=== PATIENT | male | born 1965 | race Caucasian/White ===

== ENCOUNTER 2018-02-06 10:41 | Inpatient (IN) ==
[2018-01-31 12:22] LABS: Appearance,Urine CLEAR; Bilirubin,Urine NEG (NEG); Color,Urine YELLOW; Glucose,Urine (UA) NEGATIVE (NEG); Leukocyte Esterase,Urine NEG /uL (NEG); Protein,Urine NEG (NEG); Specific Gravity,Urine 1.012 (1.000-1.035); Urine Blood NEG mg/dL (<0.03); Urobilinogen,Urine NEG (NEG)
[2018-01-31 13:29] LABS: Blood Urea Nitrogen 11 mg/dl (6-20)
[2018-01-31 13:35] LABS: Basophils # (Auto) 0 K/mcL (0.0-0.3); Basophils % (Auto) 0.6 % (0.0-2.0); Eosinophils # (Auto) 0.1 K/mcL (0.0-0.7); Granulocytes % (Auto) 53.1 % (38.0-78.0); Lymphocytes # (Auto) 2.7 K/mcL (1.5-4.8); Lymphocytes % (Auto) 36.7 % (15.5-49.0); Mean Cell Volume 99.7 fL (80.0-100.0); Mean Corpuscular HGB Conc 32.9 g/dL (31.0-36.0); Mean Corpuscular Hemoglobin 32.8 pg (26.0-34.0); Monocytes # (Auto) 0.6 K/mcL (0.1-0.9); Monocytes % (Auto) 7.6 % (1.0-12.0); Platelet Count 298 K/mcL (140-440); RBC 4.28 M/mcL (4.50-5.90); Red Cell Distribution Width 15.2 % (11.5-14.5)
[~2018-02-06 10:41] MED LIST: ACETAMINOPHEN 500 MG TABLET PO SCH; CELECOXIB 200 MG CAPSULE PO SCH; GABAPENTIN 400 MG CAPSULE PO SCH; ceFAZolin 1 GM VIAL IV SCH; oxyCODONE 10 MG TAB.ER.12H PO SCH
[2018-02-06] MEDS ORDERED: ROPIVACAINE HCL/PF 30 ML VIAL IJ ONE (13:15)
[2018-02-06] MEDS ORDERED: LIDOCAINE HCL/PF 100 MG/5 ML SYRINGE IV ONE (13:15)
[2018-02-06] MEDS ORDERED: GLYCOPYRROLATE 0.2 MG/ML VIAL IV ONE (13:15)
[2018-02-06] MEDS ORDERED: fentaNYL 250 MCG/5 ML VIAL IV ONE (13:15)
[2018-02-06] MEDS ORDERED: TRANEXAMIC ACID 1,000 MG/10 ML VIAL IV ONE (13:15)
[2018-02-06] MEDS ORDERED: KETAMINE 100 MG/ML ML IV ONE (13:15)
[2018-02-06] MEDS ORDERED: ONDANSETRON 4 MG/2 ML VIAL IV ONE (13:15)
[2018-02-06] MEDS ORDERED: MIDAZOLAM 2 MG/2 ML VIAL IV ONE (13:15)
[2018-02-06] MEDS ORDERED: ROCURONIUM 10 MG/ML ML IV ONE (13:15)
[2018-02-06] MEDS ORDERED: NEOSTIGMINE 1 MG/ML VIAL IV ONE (13:15)
[2018-02-06] MEDS ORDERED: PROPOFOL 200 MG/20 ML VIAL IV ONE (13:15)
[2018-02-06] MEDS ORDERED: GENTAMICIN SULFATE 800 MG/20 ML VIAL IR ONE (14:21)
[2018-02-06] MEDS ORDERED: MAGNESIUM HYDROXIDE 30 ML ORAL.SUSP PO PRN (14:45)
[2018-02-06] MEDS ORDERED: KETOROLAC 15 MG/ML VIAL IV PRN (14:45)
[2018-02-06] MEDS ORDERED: BENZOCAINE/MENTHOL 1 LOZENGE PO PRN (14:45)
[2018-02-06] MEDS ORDERED: ONDANSETRON 4 MG/2 ML VIAL IV PRN ×2 (14:45→15:17)
[2018-02-06] MEDS ORDERED: BISACODYL 10 MG SUPP.RECT PR PRN (14:45)
[2018-02-06] MEDS ORDERED: ACETAMINOPHEN 325 MG TABLET PO PRN (14:45)
[2018-02-06] MEDS ORDERED: TRANEXAMIC ACID 1,000 MG/10 ML VIAL IV SCH (14:45)
[2018-02-06] MEDS ORDERED: POLYETHYLENE GLYCOL 3350 17 GM PACKET PO PRN (14:45)
[2018-02-06] MEDS ORDERED: FLEETS ADULT ENEMA PR PRN (14:45)
[2018-02-06] MEDS ORDERED: 0.45 % SODIUM CHLORIDE 1,000 ML IV SCH (14:45)
--- NOTE | 2018-02-06 14:45 | Brief Operative Note ---
Date of procedure: 02/06/18 Pre-op diagnosis: right shoulder rca and tear of bicep Post-op diagnosis: same Procedure: right reverse tsa with bicep tenodesis Grafts/Implants: Yes Anesthesia: GETA Complications: none Surgeon: Marcio Rios [facility] Counselor: Bobo Greer Estimated blood loss (cc): 100 Specimens Removed/Pathology: none sent Disposition: PACU
[2018-02-06] MEDS ORDERED: HYDROCODONE/APAP 7.5/325MG TABLET PO PRN (14:52)
[2018-02-06] MEDS ORDERED: ALBUTEROL SULFATE 1 PUFF INHALER INH PRN (14:52)
[2018-02-06] MEDS ORDERED: METHOCARBAMOL 750 MG TABLET PO PRN (14:52)
[2018-02-06] MEDS ORDERED: MEPERIDINE 50 MG/ML INJECTION ONE (15:13)
[2018-02-06] MEDS ORDERED: IPRATROPIUM/ALBUTEROL 3 ML AMPUL.NEB NEB PRN (15:17)
[2018-02-06] MEDS ORDERED: fentaNYL 100 MCG/2 ML VIAL IV ONE (15:17)
[2018-02-06] MEDS ORDERED: fentaNYL 100 MCG/2 ML VIAL IV PRN (15:17)
[2018-02-06] MEDS ORDERED: MEPERIDINE 25 MG/ML SYRINGE IV PRN (15:17)
[2018-02-06] MEDS ORDERED: METHOCARBAMOL 1,000 MG/10 ML VIAL IV ONE (15:20)
[2018-02-06] MEDS ORDERED: METHOCARBAMOL 1,000 MG/10 ML VIAL ONE (15:25)
[2018-02-06] MEDS ORDERED: LACTATED RINGERS 1,000 ML IV SCH (15:30)
--- NOTE | 2018-02-06 15:37 | XRay Report ---
CLINICAL INFORMATION: Post-OP Total Shoulder COMPARISON: None. FINDINGS: Right total shoulder prostheses is anatomically aligned. No osseous abnormality. Soft tissue swelling seen as expected IMPRESSION: Negative Interpreted and Authenticated by: Leon Hurd 02/06/18
--- NOTE | 2018-02-06 15:59 | Operative Note ---
DATE OF OPERATION: 02/06/2018 PREOPERATIVE DIAGNOSIS: Right shoulder rotator cuff arthropathy with biceps tendinopathy. POSTOPERATIVE DIAGNOSIS: Right shoulder rotator cuff arthropathy with biceps tendinopathy. PROCEDURE: Right reverse total shoulder and biceps tenodesis. SURGEON: Marcio Rios M.D. SURVEILLANCE INSPECTOR: Bobo Greer PA-C. ANESTHESIA: General LMA anesthesia. COMPLICATIONS: None. DESCRIPTION OF PROCEDURE: The patient was brought to the operating room and put to sleep with general LMA anesthesia. Once asleep, the patient had the right shoulder sterilely prepped and draped in the usual sterile fashion. We confirmed this as the operative site with a timeout. Once asleep, we then made a deltopectoral approach, covering the skin with Ioban. Preop antibiotics and tranexamic acid had been given. A deltopectoral approach was performed and exposed the joint. We released the subscap anteriorly and dislocated the humerus anteriorly. We released the remnants of the biceps tendon and extensive synovitis and a very large rotator cuff tear was present. We then made our neck cut at the anatomical neck region with 20 degrees retroversion. Once this was done, we then subluxed the head posteriorly, performed a 360 degree capsular release around the glenoid, and then placed a central pin. We reamed up to the size of 40, placed the Metaglene centrally with a 36 mm central screw, a 24 superior screw, a 32 inferior screw, and a 40 mm anterior screw. These had excellent purchase. We irrigated thoroughly and then placed a 40 mm glenosphere which was 2 mm of offset, 2 mm of the eccentricity. This was tapped into place. I then prepared the humerus. This was reamed up to the size 11 stem. This was trialed with a standard thickness poly. It fit very nicely with excellent range of motion. We irrigated thoroughly, put a little cement on the end of the stem. This was inserted for security and tapped into place. A standard thickness poly was inserted and reduced the shoulder without difficulty. Tension was perfect. We irrigated thoroughly and then controlled any bleeding. The cephalic vein was kept intact. I then performed a biceps tenodesis using a FiberWire, and this was sutured to the bone and to the pec major muscle, roughening the bone to give a good bony surface to grow in. We irrigated thoroughly and then closed the deltopectoral approach with 2-0 Vicryl and adhesive closure. The patient tolerated this well without complication. Blood loss was about 100 mL. A DonJoy sling was fitted and given to the patient at the end of the case. RBH:yani Job ID: [id number] Doc ID: [id number] Marcio Rios MD
[2018-02-06] MEDS: OXYBUTYNIN CHLORIDE 5 MG TAB.XL.24H PO SCH ×2 (17:50→21:24)
[2018-02-06] MEDS: GABAPENTIN 400 MG CAPSULE PO SCH ×2 (17:51→21:11)
[2018-02-06] MEDS: PANTOPRAZOLE 40 MG TABLET PO SCH (17:51)
[2018-02-06] MEDS ORDERED: hydrOXYzine 25 MG TABLET PO SCH (21:00)
[2018-02-06] MEDS ORDERED: TEMAZEPAM 15 MG CAPSULE PO PRN (21:00)
[2018-02-06] MEDS ORDERED: DICLOFENAC 75 MG PO SCH (21:00)
[2018-02-06] MEDS ORDERED: SENNOSIDES 1 TABLET PO SCH (21:00)
[2018-02-06] MEDS ORDERED: PRAZOSIN 1 MG CAPSULE PO SCH (21:00)
[2018-02-06] MEDS ORDERED: OLANZapine 2.5 MG TABLET PO SCH (21:00)
[2018-02-06] MEDS ORDERED: ATORVASTATIN 20 MG TABLET PO SCH (21:00)
[2018-02-06] MEDS: ACYCLOVIR 400 MG TABLET PO SCH (21:11)
[2018-02-06] MEDS: FAMOTIDINE 20 MG TABLET PO SCH (21:11)
[2018-02-06] MEDS: buPROPion 100 MG TABLET PO SCH (21:12)
[2018-02-06] MEDS: ceFAZolin 1 GM VIAL IV SCH (21:12)
[2018-02-06] MEDS: DOCUSATE SODIUM 100 MG CAPSULE PO SCH (21:23)
[2018-02-06] MEDS: Budesonide/Formoterol Fumarate [Symbicort 160-4.5 MCG] Inhaler INH SCH (21:24)
[2018-02-06] MEDS: FLUTICASONE PROPIONATE SPRAY.NAS NS SCH (21:24)
[2018-02-06] MEDS: 0.9 % SODIUM CHLORIDE 10 ML SYRINGE IV SCH (21:25)
[2018-02-07] MEDS: HYDROcodone/APAP 10/325MG TABLET PO PRN ×3 (01:36→11:16)
[2018-02-07] MEDS: HYDROmorphone 2 MG/ML VIAL IV PRN ×2 (03:37→13:09)
[2018-02-07] MEDS: ceFAZolin 1 GM VIAL IV SCH (05:47)
--- NOTE | 2018-02-07 07:45 | Orthopedic Progress Note ---
Subjective Patient information: Note initiated : 02/07/18 at 7:44 am Service Date, if different from initiated Date: [] Patient: Lemuel Mccarty 52 y/o M admitted on 02/06/18 for Right Reverse Total Shoulder Arthroplasty with. Chief Complaint: [Pt is stable this morning on post operative day 1 without any significant concerns or complaints. Patients vital signs have remained stable. Patients dressing is dry and is grossly intact from a neurovascular and motor standpoint. Patients 10 point ROS is otherwise negative. ] Objective Vital signs: Vital Signs Temp Pulse Resp BP Pulse Ox 02/07/18 06:51 97.8 F 77 14 147/74 91 02/07/18 03:56 97.9 F 86 16 127/79 93 02/06/18 23:50 98.0 F 81 16 116/73 94 02/06/18 20:00 98.0 F 77 16 138/88 96 02/06/18 17:21 157/101 96 02/06/18 16:51 151/61 94 02/06/18 16:36 144/90 93 02/06/18 16:21 134/85 92 02/06/18 16:06 152/95 91 02/06/18 16:00 88 16 92 02/06/18 15:40 90 14 162/88 93 02/06/18 15:25 89 15 148/77 94 02/06/18 15:10 93 H 15 140/72 94 02/06/18 15:05 63 15 147/51 94 02/06/18 15:00 77 14 163/94 95 02/06/18 14:56 97.1 F 65 15 132/74 95 02/06/18 11:16 97.9 F 18 125/85 94 02/06/18 11:15 65 Intake and Output 02/06/18 02/07/18 02/07/18 21:59 05:59 13:59 Intake Total 2350 / 2350 250 / 250 Output Total 1000 / 1000 1050 / 1050 Balance 1350 / 1350 -800 / -800 Intake: Oral 250 / 250 IV - Manual Only 2350 / 2350 Output: Void Amount 900 / 900 1050 / 1050 Estimated Blood Loss 100 / 100 Other: Urine Appearance Clear Clear Urine Color Bright Yellow Straw Urine Odor Normal Weight 236 lb Intake & Output: Intake & Output 02/06/18 02/07/18 02/07/18 21:59 05:59 13:59 Intake Total 2350 / 2350 250 / 250 Output Total 1000 / 1000 1050 / 1050 Balance 1350 / 1350 -800 / -800 Weight 236 lb Intake: Oral 250 / 250 IV - Manual Only 2350 / 2350 Output: Void Amount 900 / 900 1050 / 1050 Estimated Blood Loss 100 / 100 Other: Urine Appearance Clear Clear Urine Color Bright Yellow Straw Urine Odor Normal Incision: Yes healing Dressing: Yes clean Weight bearing status: full Neurological exam IM: Yes motor sensory intact, Yes neurovascular intact Extremities exam IM: Yes neurovascular intact - Labs CBC & BMP: 01/31/18 10:06 01/31/18 10:06 Labs: Orthopedic Labs 01/31/18 10:05 PT 13.2 INR 1.0 APTT 28 01/31/18 10:06 Hgb 14.0 Hct 42.6 Assessment and Plan (1) Hx of total shoulder replacement The patient has been educated regarding dressing care, Physical Therapy recommendations, home exercises, restrictions, and follow up appointments. The patient has had all necessary DME prescribed. The patient has remained relatively stable during their hospital course. Leave Dermabond patch intact until followup Status: Acute
--- NOTE | 2018-02-07 07:47 | Discharge Summary ---
Ortho Discharge - TSA - Patient Instructions Diet: Regular Diet Activity: activity as tolerated, weight bearing as tolerated Total Shoulder Protocol: Leave immobilizer in place except for bathing and ROM. Abduction pillow. Continue to wear sling until seen by physician. Codman Pendulum : These exercises use momentum produced by your body to move your shoulder joint. Bend your knees and shift your weight to your front leg, then back, allowing your arm to swing in the same directions. Using the same technique, alternately shift your weight between your right and left legs, allowing your arm to swing from side to side. These exercises are also performed in counterclockwise and clockwise circular motions. Typically these exercises are performed several times per day, for a set number repetitions or minutes, such as 20 times in a row or 5 minutes at a time. Dressing Care: May shower in 2 days - Problem Maintenance (1) Hx of total shoulder replacement Status: Acute - Follow Up Plan Follow Up Appointments: Bobo Greer PA-C [Physician Logistics Specialist] - 02/21/18 1:10 pm Disposition: Home, Self-Care Prognosis: Good Rehab Potential: Good I certify that the patient requires SNF services: No Overall status at discharge: patient is progressing back to baseline - Orders For Discharge Prescriptions: Docusate Sodium [Colace] 100 mg PO BID #60 capsule HYDROcodone/APAP 10/325MG [[place] 10-325Mg] 1 - 2 tab PO Q4HP PRN #75 tablet PRN Reason: Pain Level 3-6
[2018-02-07] MEDS ORDERED: POTASSIUM CHLORIDE 10 MEQ TABLET PO SCH (08:00)
[2018-02-07] MEDS: PANTOPRAZOLE 40 MG TABLET PO SCH (08:04)
[2018-02-07] MEDS: 0.9 % SODIUM CHLORIDE 10 ML SYRINGE IV SCH (08:05)
[2018-02-07] MEDS ORDERED: LIDOCAINE PATCH TOPICAL SCH (09:00)
[2018-02-07] MEDS ORDERED: TIOTROPIUM BROMIDE 18 MCG INHALANT INH SCH (09:00)
[2018-02-07] MEDS ORDERED: MULTIVIT,THER IRON,CA,FA & MIN 1 TABLET PO SCH (09:00)
[2018-02-07] MEDS ORDERED: FISH OIL 1,000 MG CAPSULE PO SCH (09:00)
[2018-02-07] MEDS ORDERED: VITAMIN D3 5,000 UNIT CAPSULE PO SCH (09:00)
[2018-02-07] MEDS ORDERED: LISINOPRIL 20 MG TABLET PO SCH (09:00)
[2018-02-07] MEDS ORDERED: PRAZOSIN 1 MG CAPSULE PO SCH (09:00)
[2018-02-07] MEDS ORDERED: FLUoxetine HCL 20 MG CAPSULE PO SCH (09:00)
[2018-02-07] MEDS ORDERED: LORATADINE 10 MG TABLET PO SCH (09:00)
[2018-02-07] MEDS: DOCUSATE SODIUM 100 MG CAPSULE PO SCH (09:08)
[2018-02-07] MEDS: FLUTICASONE PROPIONATE SPRAY.NAS NS SCH (09:09)
[2018-02-07] MEDS: GABAPENTIN 400 MG CAPSULE PO SCH (09:10)
[2018-02-07] MEDS: ACYCLOVIR 400 MG TABLET PO SCH (09:11)
[2018-02-07] MEDS: buPROPion 100 MG TABLET PO SCH (09:11)
[2018-02-07] MEDS: OXYBUTYNIN CHLORIDE 5 MG TAB.XL.24H PO SCH (09:11)
[2018-02-07] MEDS: FAMOTIDINE 20 MG TABLET PO SCH (09:11)
[2018-02-07] MEDS: Budesonide/Formoterol Fumarate [Symbicort 160-4.5 MCG] Inhaler INH SCH (09:16)
== END 2018-02-07 13:30 | disposition home or self-care (01) | DRG 483 ==
LOC: MEDSUR 10:41
PROVIDERS: ADMIT Orthopaedic Surgery; ATTEND Orthopaedic Surgery
CPT/HCPCS: 97161

== ENCOUNTER 2020-12-13 10:17 | Observation (INO) ==
[2020-12-13] MEDS ORDERED: diphenhydrAMINE 50 MG/ML VIAL IV ONE (10:25)
[2020-12-13] MEDS ORDERED: methylPREDNISolone SOD SUCC 125 MG/2 ML VIAL IV ONE (10:25)
[2020-12-13] MEDS ORDERED: 0.9 % SODIUM CHLORIDE 250 ML IV SCH (10:30)
--- NOTE | 2020-12-13 10:31 | Emergency Department Note ---
HPI General Chief complaint: Allergic Reaction Stated complaint: tongue swelling Time Seen by Provider: 12/13/20 10:24 Source: patient Mode of arrival: ambulatory Limitations: no limitations History of Present Illness HPI Narrative: Narrative: 55 yo M p/w tongue swelling. Onset of Sx just DATA MANAGER. Constant since onset, not rapidly worsening. No previous episodes. Denies CP/SOB. No new foods, no insect or other bites. Ate breakfast (oats) this AM, which is usual for him. Is on lisinopril, and has been on this for several years. No other rashes noted. Related Data Home Medications Medication Instructions Recorded Confirmed acyclovir 400 mg PO BID 01/31/18 10/03/20 albuterol sulfate 2 puff INH Q4HP PRN 01/31/18 10/03/20 atorvastatin 20 mg PO HS 01/31/18 10/03/20 budesonide-formoterol 2 puff INH BID 01/31/18 10/03/20 cholecalciferol (vitamin D3) 5,000 unit PO DAILY 01/31/18 10/03/20 diclofenac sodium 75 mg PO BID 01/31/18 10/03/20 fluoxetine 80 mg PO DAILY 01/31/18 10/03/20 fluticasone propionate 1 spray NS BID 01/31/18 10/03/20 gabapentin 400 mg PO TID 01/31/18 10/03/20 hydroxyzine pamoate 25 mg PO HS 01/31/18 10/03/20 lidocaine 1 patch TOPICAL DAILY 01/31/18 10/03/20 lisinopril 20 mg PO DAILY 01/31/18 10/03/20 loratadine 10 mg PO DAILY 01/31/18 10/03/20 methocarbamol 750 mg PO QIDP PRN 01/31/18 10/03/20 qhtkxtue-axhd-QH-calcium-mins 1 tab PO DAILY 01/31/18 10/03/20 olanzapine 7.5 mg PO HS 01/31/18 10/03/20 omega 7-lej-rgn-fish oil 2,000 mg PO DAILY 01/31/18 10/03/20 oxybutynin chloride 5 mg PO TID 01/31/18 10/03/20 pantoprazole 80 mg PO BIDAC 01/31/18 10/03/20 potassium chloride 10 meq PO QAMCC 01/31/18 10/03/20 prazosin 2 mg PO DAILY 01/31/18 10/03/20 prazosin 8 mg PO HS 01/31/18 10/03/20 tiotropium bromide 2 puff INH DAILY 01/31/18 10/03/20 bupropion HCl 100 mg tablet 75 mg PO BID tab 07/19/19 10/03/20 carboxymethylcellulose sodium 0.5 1 drp OPHTHALMIC QID 07/19/19 10/03/20 % eye drops in a dropperette famotidine 20 mg tablet 20 mg PO BID 07/19/19 10/03/20 sildenafil 100 mg tablet 100 mg PO QDAY PRN 07/19/19 10/03/20 mometasone 100 mcg/actuation HFA See Rx Instructions INHALATION BID 10/16/19 10/03/20 aerosol inhaler Previous Rx's Medication Instructions Recorded loperamide 2 mg tablet 2 mg PO Q4H PRN #30 tab 09/09/20 Allergies Allergy/AdvReac Type Severity Reaction Status Date / Time Varenicline [From Chantix] AdvReac Intermediate Depression Verified 12/13/20 10:24 Review of Systems ROS ROS Narrative: Narrative: All systems ED: reviewed and negative except as stated. Constitutional: Denies fever and chills Eyes: Denies vision change ENT ED: Denies ear pain and throat pain Cardiovascular: Denies chest pain and palpitations Respiratory: Denies shortness of breath and cough Gastrointestinal: Denies abdominal pain, nausea and vomiting Genitourinary: Denies dysuria and frequency Musculoskeletal: Denies back pain and joint swelling Integumentary: Denies rash and lesions Neurological: Denies headache and weakness Psychiatric: Denies anxiety and depression Endocrine: Denies fatigue and heat or cold intolerance Hematological/Lymphatic: Denies easy bleeding and easy bruising PFSH Narrative Patient History Narrative: Narrative: Medical/Surgical/Family History All Active Problems (Updated 12/13/20 @ 17:13 by Joseph Porter MD) Bruising (Acute) 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-I) (Acute) Shoulder pain, right (Acute) Diarrhea (Acute) Shortness of breath (Acute) Fever (Acute) Viral syndrome (Acute) Hx of total shoulder replacement (Acute) COPD exacerbation (Acute) Lip swelling (Acute) Hip pain, left (Acute) Medical History Fever Shortness of breath Shoulder pain, right Viral syndrome Social History Smoking Status: Former smoker Alcohol Intake Frequency: a few times a week Substance Use: does not use Exam Narrative Narrative: Narrative: General Limitations: no limitations Eye Eye: Present normal appearance and scleral icterus ENT ENT: Present mucous membranes moist and other (moderate tongue edema, B/L. Mallampati IV. No lacerations.) Neck Neck: Present trachea midline Chest Chest: Present symmetric chest wall rise Respiratory Respiratory: Present normal lung sounds bilaterally; Absent respiratory distress, wheezes, stridor, accessory muscle use and prolonged expiratory phase Cardiovascular Cardiovascular: Present regular rate and normal rhythm; Absent systolic murmur and diastolic murmur Adbominal Abdominal: Present soft; Absent distention and tenderness Extremities Extremities: Absent pedal edema Neurological Neurological: Present alert and oriented X3 Psychiatric Psychiatric: Present normal affect and normal mood Skin Skin: Present warm (WNL) and dry Course Vital Signs Vital signs: Vital Signs Temperature 98.7 F 12/13/20 10:19 Pulse Rate 77 12/13/20 10:19 Respiratory Rate 18 12/13/20 10:19 Blood Pressure 136/96 12/13/20 10:19 Pulse Oximetry (%) 90 12/13/20 10:19 Temperature 98.7 F 12/13/20 10:19 Pulse Rate 74 12/13/20 15:46 Respiratory Rate 12 12/13/20 15:46 Blood Pressure 138/95 12/13/20 15:46 Pulse Oximetry (%) 94 12/13/20 15:46 [facility] MDM Narrative Medical decision making narrative: Narrative: 55 yo M w/ h/o COPD, HTN, p/w tongue edema DDx - LEXI-i induced angioedema, allergic angioedema, anaphylaxis, tongue injury Pt presented w/ tongue edema, but was still maintaining his airway and se cretions. Immediate intubation was not required. I felt that an allergic angioedema was less likely, but did give empiric solumedrol and benadryl while waiting for FFP, as they were unlikely to cause harm. I did not feel that anaphylaxis was likely and epi was not indicated. There was no evidence of traumatic injury. Overall evaluation was c/w LEXI-i induced angioedema. After discussing R/B/A I started Tx w/ FFP 2 units, to which he responded well. I monitored him for hours to ensure that there was no decompensation, and he continued to improve. I then contacted the hospitalist who accepted him for admission. Lab Data Lab results reviewed: Yes I reviewed the patient's lab results. Result diagrams: 12/13/20 10:28 12/13/20 10:28 Labs: Lab Results 12/13/20 12/13/20 Range/Units 10:28 10:28 WBC 8.2 (4.5-11.0) K/mcL RBC 4.26 L (4.63-6.08) M/mcL Hgb 14.3 (13.7-17.5) g/dL Hct 42.8 (40.1-51.0) % MCV 100.5 H (80.0-100.0) fL MCH 33.6 (26.0-34.0) pg MCHC 33.4 (31.0-36.0) g/dL RDW 13.2 (11.5-14.5) % Plt Count 242 (140-440) K/mcL MPV 8.8 (7.4-10.4) fL Neut % (Auto) 56.0 (38.0-78.0) % Lymph % (Auto) 32.3 (15.5-49.0) % Mora % (Auto) 8.2 (1.0-12.0) % Eos % (Auto) 2.8 (0.0-7.0) % Baso % (Auto) 0.7 (0.0-2.0) % Lymph # (Auto) 2.63 (1.50-4.80) K/mcL Mora # (Auto) 0.67 (0.10-0.90) K/mcL Eos # (Auto) 0.23 (0.00-0.70) K/mcL Baso # (Auto) 0.06 (0.00-0.30) K/mcL Absolute Neutrophils 4.56 (1.80-8.00) K/mcL Sodium 135 (133-145) mmol/L Potassium 4.6 (3.3-5.1) mmol/L Chloride 100 (96-108) mmol/L Carbon Dioxide 25 (22-30) mmol/L Anion Gap 10.0 (8.0-16.0) BUN 19 (6-20) mg/dL Creatinine 1.2 (0.7-1.2) mg/dL GFR Calculation 67 Glucose 92 (70-105) mg/dL Calcium 8.7 (8.6-10.4) mg/dL Total Bilirubin 0.3 (0.1-1.0) mg/dL AST 33 (<40) U/L ALT 27 (<40) U/L Alkaline Phosphatase 170 H (39-117) U/L Total Protein 6.9 (5.9-8.4) gm/dL Albumin 4.2 (3.2-5.2) gm/dL Globulin 2.7 (2.2-3.7) gm/dL Albumin/Globulin Ratio 1.6 (1.0-2.3) ED POC Tests ED POC Tests: ISELA - SARS Antigen Negative CC TIME Critical Care Time Total Critical Care Time: 45 Attestation: The very real possibility of disability or existed without emergent intervention and required my utmost care at the bedside. Organ systems at risk of deterioration included ENT, pulmonary, cardiovascular. Interventions included FFP, multiple re-evaluations by myself and director of medical staff services. 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) Patient Disposition: Xfer As Inpt ([facility]) Condition: Fair Follow up with: Cristofer Mtz ARNP [Primary Care Provider] - Prescriptions: No Action loperamide [Imodium A-D] 2 mg tablet 2 mg PO Q4H PRN (Reason: loose stool) Qty: 30 RF: 0 famotidine 20 mg tablet 20 mg PO BID RF: 0 carboxymethylcellulose sodium 0.5 % dropperette 1 drp OPHTHALMIC QID RF: 0 sildenafil [Viagra] 100 mg tablet 100 mg PO QDAY PRNRF: 0 Asmanex HFA 100 mcg/actuation HFA aerosol inhaler See Rx Instructions INHALATION BID RF: 0 atorvastatin 20 MG tablet 20 mg PO HS RF: 0 lisinopril 20 MG tablet 20 mg PO DAILY RF: 0 gabapentin 400 MG capsule 400 mg PO TID RF: 0 potassium chloride 10 MEQ tablet 10 meq PO QAMCC RF: 0 olanzapine 2.5 MG tablet 7.5 mg PO HS RF: 0 methocarbamol 750 MG tablet 750 mg PO QIDP PRN (Reason: Spasms) RF: 0 pantoprazole 40 MG tablet 80 mg PO BIDAC RF: 0 lidocaine 1 PATCH patch 1 patch topical DAILY RF: 0 oxybutynin chloride 5 MG tablet extended release 24hr 5 mg PO TID RF: 0 diclofenac sodium 75 MG tablet 75 mg PO BID RF: 0 acyclovir 200 MG capsule 400 mg PO BID RF: 0 albuterol sulfate 1 PUFF inhaler 2 puff INH Q4HP PRN (Reason: Shortness Of Breath) RF: 0 fluoxetine 20 MG capsule 80 mg PO DAILY RF: 0 fluticasone propionate 1 SPRAY spray,suspension 1 spray NS BID RF: 0 cholecalciferol (vitamin D3) 5,000 UNIT capsule 5,000 unit PO DAILY RF: 0 loratadine 10 MG tablet 10 mg PO DAILY RF: 0 prazosin 2 MG capsule 2 mg PO DAILY RF: 0 prazosin 2 MG capsule 8 mg PO HS RF: 0 hydroxyzine pamoate 25 MG capsule 25 mg PO HS RF: 0 budesonide-formoterol 10.2 GM HFA aerosol inhaler 2 puff INH BID RF: 0 iakufrbg-gidk-AG-calcium-mins 1 TAB tablet 1 tab PO DAILY RF: 0 omega 7-qxf-puo-fish oil 1,000 MG capsule 2,000 mg PO DAILY RF: 0 tiotropium bromide 4 GM mist 2 puff INH DAILY RF: 0 bupropion HCl 100 mg tablet 75 mg PO BID RF: 0
[2020-12-13 12:42] LABS: Basophils # (Auto) 0.06 K/mcL (0.00-0.30); Basophils % (Auto) 0.7 % (0.0-2.0); Eosinophils # (Auto) 0.23 K/mcL (0.00-0.70); Eosinophils % (Auto) 2.8 % (0.0-7.0); Hematocrit 42.8 % (40.1-51.0); Hemoglobin 14.3 g/dL (13.7-17.5); Lymphocytes # (Auto) 2.63 K/mcL (1.50-4.80); Lymphocytes % (Auto) 32.3 % (15.5-49.0); Mean Cell Volume 100.5 fL (80.0-100.0); Mean Corpuscular HGB Conc 33.4 g/dL (31.0-36.0); Mean Platelet Volume 8.8 fL (7.4-10.4); Monocytes # (Auto) 0.67 K/mcL (0.10-0.90); Monocytes % (Auto) 8.2 % (1.0-12.0); Platelet Count 242 K/mcL (140-440); RBC 4.26 M/mcL (4.63-6.08); Red Cell Distribution Width 13.2 % (11.5-14.5); WBC 8.2 K/mcL (4.5-11.0)
[2020-12-13 12:53] LABS: ALT/SGPT 27 U/L (<40); AST/SGOT 33 U/L (<40); Albumin 4.2 gm/dL (3.2-5.2); Albumin/Globulin Ratio 1.6 (1.0-2.3); Alkaline Phosphatase 170 U/L (39-117); Bilirubin,Total 0.3 mg/dL (0.1-1.0); Blood Urea Nitrogen 19 mg/dL (6-20); Calcium 8.7 mg/dL (8.6-10.4); Carbon Dioxide 25 mmol/L (22-30); Chloride 100 mmol/L (96-108); Globulin 2.7 gm/dL (2.2-3.7); Glomerular Filtration Rate 67; Glucose 92 mg/dL (70-105)
--- NOTE | 2020-12-13 17:08 | Internal Med Progress Note ---
SUBJECTIVE Subjective Patient information: Note initiated : 12/13/20 at 4:59 pm Service Date, if different from initiated Date: [] Patient: Lemuel Mccarty 55 y/o M admitted on for tongue swelling. Chief Complaint: [] Interval history: 55 year old male with a history of hypertension, COPD, depression, osteoarthritis developed acute onset tongue and facial edema as well as difficulty breathing this morning after taking lisinopril. He presented to [facility] ED where he was felt to have LEXI inhibitor associated angioedema and given Solumedrol, Benadryl, and Fresh Frozen Plasma followed by rapid improvement in the edema. Hospital medicine was asked to admit the patient. Review of systems Constitutional: no fever, fatigue, or weight loss Eyes: no vision changes or pain Cardiovascular: no chest pain, no palpitations Respiratory: resolved dyspnea Gastrointestinal: no abdominal pain, no nausea, vomiting, or diarrhea Genitourinary: no dysuria or difficulty voiding Musculoskeletal: no arthralgia or myalgia Integumentary: no skin lesion or wound Neurological: no focal weakness or numbness Psychiatric: no anxiety or depression Physical exam Head: Atraumatic, normal inspection. Eyes: normal appearance, no scleral icterus. Neck: full ROM Respiratory: bilateral wheezes, no respiratory distress. Cardiovascular: normal rate and rhythm, S1, S2. GI/Abdominal: soft, nontender, no guarding. Extremities: full range of motion, nontender. Neurological: CN II-XII intact, intact motor, intact sensation. Psychiatric: normal mood. Skin: warm, normal color Constitutional Vitals: Vital Signs Temp Pulse Resp BP Pulse Ox 98.7 F 74 12 138/95 94 12/13/20 10:19 12/13/20 15:46 12/13/20 15:46 12/13/20 15:46 12/13/20 15:46 Period Temp Pulse Resp BP Sys/Diop Pulse Ox Last 24 Hr 98.7 F 61-81 12-20 120-142/71-97 90-96 Intake and Output 12/13/20 12/13/20 12/13/20 05:59 13:59 21:59 Intake Total 650 Balance 650 Weight 102.058 kg Patient Weight 12/14/20 05:59 Weight 102.058 kg Intake & Output: Intake & Output 12/13/20 12/13/20 12/13/20 05:59 13:59 21:59 Intake Total 650 Balance 650 Weight 102.058 kg Intake: Blood Product 650 OBJ DATA Labs CBC & Chem 7: 12/13/20 10:28 12/13/20 10:28 Labs: Abnormal Lab Results 12/13/20 12/13/20 10:28 10:28 RBC 4.26 L MCV 100.5 H Alkaline Phosphatase 170 H Meds: Medications Sodium Chloride (Sodium Chloride 0.9%) 250 mls @ 20 mls/hr IV .[id number] CONI Stop: 12/13/20 22:59 Last Admin: 12/13/20 10:51 Dose: 20 mls/hr Documented by: A/P Narrative A/P Narrative: Assessment: 55 year old male with hypertension treated with lisinopril, COPD, osteoarthritis, GERD, depression presented to the ED for acute onset facial edema and diagnosed with LEXI inhibitor-induced angioedema. The patient received Solumedrol, Benadryl, and two units of FFP in the ED. #LEXI inhibitor-induced angioedema #COPD #Hypertension #GERD #Depression #Osteoarthritis #Hx of ocular herpes infection Plan -Admit for observation in med/surg -Home medication reconciliation then resume essential meds. -Duonebs prn. -If back to baseline tomorrow can discharge back to home. Time Spent With Patient Time: Total time spent is greater than 50% in coordination of care (as documented) at patient's floor/unit and/or counseling patient:
--- NOTE | 2020-12-13 17:12 | Internal Med History&Physical ---
HPI History of Present Illness Patient information: Note initiated : 12/13/20 at 5:10 pm Service Date, if different from initiated Date: [] Patient: Lemuel Mccarty a 55 y/o M admitted on for tongue swelling. Chief Complaint: [] History of present illness: Mr. Mccarty is a 55 year old male with a history of hypertension, COPD, depression, osteoarthritis developed acute onset tongue and facial edema as well as difficulty breathing this morning after taking lisinopril. He presented to the ED where he was felt to have LEXI inhibitor associated angioedema and given Solumedrol, Benadryl, and Fresh Frozen Plasma followed by rapid improvement in the edema. Hospital medicine was asked to admit the patient. Review of systems Constitutional: no fever, fatigue, or weight loss Eyes: no vision changes or pain Cardiovascular: no chest pain, no palpitations Respiratory: resolved dyspnea Gastrointestinal: no abdominal pain, no nausea, vomiting, or diarrhea Genitourinary: no dysuria or difficulty voiding Musculoskeletal: no arthralgia or myalgia Integumentary: no skin lesion or wound Neurological: no focal weakness or numbness Psychiatric: no anxiety or depression Physical exam Head: Atraumatic, normal inspection. Eyes: normal appearance, no scleral icterus. Neck: full ROM Respiratory: bilateral wheezes, no respiratory distress. Cardiovascular: normal rate and rhythm, S1, S2. GI/Abdominal: soft, nontender, no guarding. Extremities: full range of motion, nontender. Neurological: CN II-XII intact, intact motor, intact sensation. Psychiatric: normal mood. Skin: warm, normal color PFSH PFSH All Active Problems Bruising (Acute) Shoulder pain, right (Acute) Diarrhea (Acute) Shortness of breath (Acute) Fever (Acute) Viral syndrome (Acute) Hx of total shoulder replacement (Acute) COPD exacerbation (Acute) Lip swelling (Acute) Hip pain, left (Acute) Medical History Fever Shortness of breath Shoulder pain, right Viral syndrome Social History alcohol intake frequency: a few times a week substance use type: does not use MEDS/ALLERGIES Home Medications and Allergies Home Medications Medication Instructions Recorded Confirmed Type acyclovir 400 mg PO BID 01/31/18 10/03/20 History albuterol sulfate 2 puff INH Q4HP PRN 01/31/18 10/03/20 History atorvastatin 20 mg PO HS 01/31/18 10/03/20 History budesonide-formoterol 2 puff INH BID 01/31/18 10/03/20 History cholecalciferol (vitamin D3) 5,000 unit PO DAILY 01/31/18 10/03/20 History diclofenac sodium 75 mg PO BID 01/31/18 10/03/20 History fluoxetine 80 mg PO DAILY 01/31/18 10/03/20 History fluticasone propionate 1 spray NS BID 01/31/18 10/03/20 History gabapentin 400 mg PO TID 01/31/18 10/03/20 History hydroxyzine pamoate 25 mg PO HS 01/31/18 10/03/20 History lidocaine 1 patch TOPICAL DAILY 01/31/18 10/03/20 History lisinopril 20 mg PO DAILY 01/31/18 10/03/20 History loratadine 10 mg PO DAILY 01/31/18 10/03/20 History methocarbamol 750 mg PO QIDP PRN 01/31/18 10/03/20 History zmntcuiq-eczl-YP-calcium-mins 1 tab PO DAILY 01/31/18 10/03/20 History olanzapine 7.5 mg PO HS 01/31/18 10/03/20 History omega 8-pvv-ztw-fish oil 2,000 mg PO DAILY 01/31/18 10/03/20 History oxybutynin chloride 5 mg PO TID 01/31/18 10/03/20 History pantoprazole 80 mg PO BIDAC 01/31/18 10/03/20 History potassium chloride 10 meq PO QAMCC 01/31/18 10/03/20 History prazosin 2 mg PO DAILY 01/31/18 10/03/20 History prazosin 8 mg PO HS 01/31/18 10/03/20 History tiotropium bromide 2 puff INH DAILY 01/31/18 10/03/20 History bupropion HCl 100 mg tablet 75 mg PO BID tab 07/19/19 10/03/20 History carboxymethylcellulose sodium 0.5 1 drp OPHTHALMIC QID 07/19/19 10/03/20 History % eye drops in a dropperette famotidine 20 mg tablet 20 mg PO BID 07/19/19 10/03/20 History sildenafil 100 mg tablet 100 mg PO QDAY PRN 07/19/19 10/03/20 History mometasone 100 mcg/actuation HFA See Rx Instructions INHALATION BID 10/16/19 10/03/20 History aerosol inhaler loperamide 2 mg tablet 2 mg PO Q4H PRN #30 tab 09/09/20 10/03/20 Rx Allergies Allergy/AdvReac Type Severity Reaction Status Date / Time Varenicline [From Chantix] AdvReac Intermediate Depression Verified 12/13/20 10:24 EXAM Constitutional Vitals: Temp Pulse Resp BP Pulse Ox 98.7 F 79 11 L 138/95 92 12/13/20 10:19 12/13/20 17:08 12/13/20 17:08 12/13/20 15:46 12/13/20 17:08 DATA Data Completed and Pending Labs: Labs from last 24 hours 12/13/20 12/13/20 10:28 10:28 WBC 8.2 RBC 4.26 L Hgb 14.3 Hct 42.8 MCV 100.5 H MCH 33.6 MCHC 33.4 RDW 13.2 Plt Count 242 MPV 8.8 Neut % (Auto) 56.0 Lymph % (Auto) 32.3 [place] % (Auto) 8.2 Eos % (Auto) 2.8 Baso % (Auto) 0.7 Lymph # (Auto) 2.63 [place] # (Auto) 0.67 Eos # (Auto) 0.23 Baso # (Auto) 0.06 Absolute Neutrophils 4.56 Sodium 135 Potassium 4.6 Chloride 100 Carbon Dioxide 25 Anion Gap 10.0 BUN 19 Creatinine 1.2 GFR Calculation 67 Glucose 92 Calcium 8.7 Total Bilirubin 0.3 AST 33 ALT 27 Alkaline Phosphatase 170 H Total Protein 6.9 Albumin 4.2 Globulin 2.7 Albumin/Globulin Ratio 1.6 A/P Narrative A/P Narrative: Assessment: 55 year old male with hypertension treated with lisinopril, COPD, osteoarthritis, GERD, depression presented to the ED for acute onset facial edema and diagnosed with LEXI inhibitor-induced angioedema. The patient received Solumedrol, Benadryl, and two units of FFP in the ED. #LEXI inhibitor-induced angioedema #COPD #Hypertension #GERD #Depression #Osteoarthritis #Hx of ocular herpes infection Plan -Admit for observation in med/surg -Home medication reconciliation then resume essential meds. -Duonebs prn. -If back to baseline tomorrow can discharge back to home Time Spent With Patient Time: Total time spent is greater than 50% in coordination of care (as documented) at patient's floor/unit and/or counseling patient:
[2020-12-13] MEDS ORDERED: ONDANSETRON 4 MG/2 ML VIAL IV PRN (17:37)
[2020-12-13] MEDS ORDERED: IPRATROPIUM/ALBUTEROL 3 ML AMPUL.NEB NEB PRN (17:37)
[2020-12-13] MEDS: DOCUSATE SODIUM 100 MG CAPSULE PO SCH (19:51)
[2020-12-13] MEDS: 0.9 % SODIUM CHLORIDE 10 ML SYRINGE IV SCH ×2 (19:52→20:06)
[2020-12-13] MEDS ORDERED: METHOCARBAMOL 750 MG TABLET PO PRN (20:05)
[2020-12-13] MEDS ORDERED: ALBUTEROL SULFATE 200 PUFF INHALER INH PRN (20:05)
[2020-12-13] MEDS ORDERED: hydrOXYzine 25 MG TABLET PO PRN (20:40)
[2020-12-13] MEDS ORDERED: OLANZapine 2.5 MG TABLET PO SCH (21:00)
[2020-12-13] MEDS ORDERED: OXYBUTYNIN CHLORIDE 5 MG TAB.XL.24H PO SCH (21:00)
[2020-12-13] MEDS ORDERED: ATORVASTATIN 20 MG TABLET PO SCH (21:00)
[2020-12-13] MEDS ORDERED: DICLOFENAC SODIUM 75 MG PO SCH (21:00)
[2020-12-13] MEDS ORDERED: buPROPion 100 MG TABLET PO SCH (21:00)
[2020-12-13] MEDS ORDERED: SENNOSIDES 1 TABLET PO SCH (21:00)
[2020-12-13] MEDS ORDERED: GABAPENTIN 400 MG CAPSULE PO SCH (21:00)
[2020-12-13] MEDS ORDERED: PRAZOSIN 2 MG CAPSULE PO SCH (21:00)
[2020-12-13] MEDS ORDERED: FAMOTIDINE 20 MG TABLET PO SCH (21:00)
[2020-12-13] MEDS: FLUTICASONE PROPIONATE SPRAY.NAS NS SCH (21:40)
[2020-12-13] MEDS: BUDESONIDE FORMOTEROL INH SCH (21:42)
[2020-12-13] MEDS: CARBOXYMETHYLCELLULOSE SODIUM 1 EACH DROPER.GEL OU SCH (21:43)
[2020-12-13] MEDS: GABAPENTIN 300 MG CAPSULE PO SCH (21:47)
[2020-12-14] MEDS: 0.9 % SODIUM CHLORIDE 10 ML SYRINGE IV SCH (05:00)
[2020-12-14] MEDS ORDERED: PANTOPRAZOLE 40 MG TABLET PO SCH (07:30)
[2020-12-14] MEDS ORDERED: POTASSIUM CHLORIDE 10 MEQ TABLET PO SCH (08:00)
[2020-12-14] MEDS: GABAPENTIN 300 MG CAPSULE PO SCH (08:41)
[2020-12-14] MEDS: CARBOXYMETHYLCELLULOSE SODIUM 1 EACH DROPER.GEL OU SCH (08:41)
[2020-12-14] MEDS: DOCUSATE SODIUM 100 MG CAPSULE PO SCH (08:43)
[2020-12-14] MEDS: BUDESONIDE FORMOTEROL INH SCH (08:50)
--- NOTE | 2020-12-14 08:51 | Discharge Summary ---
Discharge Provider Provider Patient information: Note initiated : 12/14/20 at 8:45 am Service Date, if different from initiated Date: [] Patient: Lemuel Mccarty 55 y/o M admitted on 12/13/20 for tongue swelling. Chief Complaint: [] Date of admission: 12/13/20 17:30 Discharge date: 12/14/20 Primary care physician: Cristofer Mtz Consults: 12/13/20 Consult to Physician [CONS] Stat Comment: Consulting Provider: Jalen Jefferson Reason For Exam: Physician to Consult Discharge Meds Discharge Medications Home Medications acyclovir 400 mg PO BID 01/31/18 [History Confirmed 12/13/20 Last Taken 12/13/20 07:00 400] albuterol sulfate 2 puff INH Q4HP PRN 01/31/18 [History Confirmed 12/13/20 Last Taken 12/13/20 07:00] atorvastatin 20 mg PO HS 01/31/18 [History Confirmed 12/13/20 Last Taken 12/12/20 22:00] budesonide-formoterol 2 puff INH BID 01/31/18 [History Confirmed 12/13/20 Last Taken 12/13/20 07:00] cholecalciferol (vitamin D3) 5,000 unit PO DAILY 01/31/18 [History Confirmed 12/13/20 Last Taken 12/13/20 07:00] diclofenac sodium 75 mg PO BID 01/31/18 [History Confirmed 12/13/20 Last Taken 12/13/20 07:00] fluoxetine 80 mg PO DAILY 01/31/18 [History Confirmed 12/13/20 Last Taken 12/13/20 07:00] fluticasone propionate 1 spray NS BID 01/31/18 [History Confirmed 12/13/20 Last Taken 12/13/20 07:00] gabapentin 900 mg PO Q6 01/31/18 [History Confirmed 12/13/20 Last Taken 12/13/20 07:00] hydroxyzine pamoate 25 mg PO HS 01/31/18 [History Confirmed 12/13/20 Last Taken 12/12/20 21:00] lidocaine 1 patch TOPICAL DAILY 01/31/18 [History Confirmed 12/13/20 Last Taken 12/12/20 22:00] loratadine 10 mg PO DAILY 01/31/18 [History Confirmed 12/13/20 Last Taken 12/13/20 07:00] methocarbamol 750 mg PO QIDP PRN 01/31/18 [History Confirmed 12/13/20 Last Taken 12/12/20 22:00] xeobcjci-yodm-GA-calcium-mins 1 tab PO DAILY 01/31/18 [History Confirmed 12/13/20 Last Taken 12/13/20 07:00] olanzapine 15 mg PO HS 01/31/18 [History Confirmed 12/13/20 Last Taken 12/12/20 22:00] omega 4-ebz-neu-fish oil 1,000 mg PO BID 01/31/18 [History Confirmed 12/13/20 Last Taken 12/13/20 07:00] oxybutynin chloride 5 mg PO TID 01/31/18 [History Confirmed 12/13/20 Last Taken 12/13/20 07:00] pantoprazole 80 mg PO BIDAC 01/31/18 [History Confirmed 12/13/20 Last Taken 12/13/20 07:00] potassium chloride 10 meq PO QAMCC 01/31/18 [History Confirmed 12/13/20 Last Taken 12/13/20 07:00] prazosin 2 mg PO QAM 01/31/18 [History Confirmed 12/13/20 Last Taken 12/13/20 07:00] prazosin 8 mg PO HS 01/31/18 [History Confirmed 12/13/20 Last Taken 12/12/20 22:00] tiotropium bromide 2 puff INH QAM 01/31/18 [History Confirmed 12/13/20 Last Taken 12/13/20 07:00] bupropion HCl 100 mg tablet 150 mg PO BID tab 07/19/19 [History Confirmed 12/13/20 Last Taken 12/13/20 07:00] carboxymethylcellulose sodium 0.5 % eye drops in a dropperette 1 drp OPHTHALMIC QID 07/19/19 [History Confirmed 12/13/20 Last Taken 12/13/20 07:00] famotidine 20 mg tablet 20 mg PO BID 07/19/19 [History Confirmed 12/13/20 Last Taken 12/13/20 07:00] sildenafil 100 mg tablet 100 mg PO QDAY PRN 07/19/19 [History Confirmed 12/13/20 Last Taken 12/10/20 22:00] amlodipine [Norvasc] 5 mg PO QDAY #60 tab 12/14/20 [Rx Last Taken Unknown] COURSE Hospital Course Hospital course: Mr. Mccarty is a 55 year old male with a history of hypertension, COPD, depression, osteoarthritis developed acute onset tongue and facial edema as well as difficulty breathing this morning after taking lisinopril. He presented to the ED where he was felt to have LEXI inhibitor associated angioedema and given Solumedrol, Benadryl, and Fresh Frozen Plasma followed by rapid improvement in the edema. Hospital medicine was asked to admit the patient. The patient was admitted for observation. Medication reconciliation raised questions of polypharmacy, lisinopril was added to the patient's allergy list. The next morning the patient felt like he was back to his baseline. He was discharged to home. Norvasc 5 mg daily was started to replace lisinopril. Post hospital follow up; -Avoid LEXI inhibitors for life, add LEXI inhibitors to the patient's allergy list. -Medication reconciliation and reduce or taper off unnecessary medications. -Follow blood pressure on Norvasc 5 mg daily and adjust to goal. Physical exam Head: Atraumatic, normal inspection. Eyes: normal appearance, no scleral icterus. Neck: full ROM Respiratory: bilateral mild wheezes, no respiratory distress. Cardiovascular: normal rate and rhythm, S1, S2. GI/Abdominal: soft, nontender, no guarding. Extremities: full range of motion, nontender. Neurological: CN II-XII intact, intact motor, intact sensation. Psychiatric: normal mood. Skin: warm, normal color Discharge diagnosis: LEXI inhibitor-induced angioedema Time Spent with Patient Time attestation: Total time spent providing and/or coordinating discharge services: EXAM Constitutional Vitals: Temp Pulse Resp BP Pulse Ox 98.9 F 84 16 141/92 96 12/14/20 07:40 12/14/20 07:40 12/14/20 07:40 12/14/20 07:40 12/14/20 07:40 Discharge Data Data Completed and Pending Labs on day of discharge: Labs from last 24 hours 12/13/20 12/13/20 10:28 10:28 WBC 8.2 RBC 4.26 L Hgb 14.3 Hct 42.8 MCV 100.5 H MCH 33.6 MCHC 33.4 RDW 13.2 Plt Count 242 MPV 8.8 Neut % (Auto) 56.0 Lymph % (Auto) 32.3 [place] % (Auto) 8.2 Eos % (Auto) 2.8 Baso % (Auto) 0.7 Lymph # (Auto) 2.63 [place] # (Auto) 0.67 Eos # (Auto) 0.23 Baso # (Auto) 0.06 Absolute Neutrophils 4.56 Sodium 135 Potassium 4.6 Chloride 100 Carbon Dioxide 25 Anion Gap 10.0 BUN 19 Creatinine 1.2 GFR Calculation 67 Glucose 92 Calcium 8.7 Total Bilirubin 0.3 AST 33 ALT 27 Alkaline Phosphatase 170 H Total Protein 6.9 Albumin 4.2 Globulin 2.7 Albumin/Globulin Ratio 1.6 Discharge Plan Patient/Caregiver Discharge Instructions Activity: increase activity as tolerated Diet: Regular Diet Prescriptions: New amlodipine [Norvasc] 5 mg tablet 5 mg PO QDAY Qty: 60 RF: 4 Continued famotidine 20 mg tablet 20 mg PO BID RF: 0 carboxymethylcellulose sodium 0.5 % dropperette 1 drp OPHTHALMIC QID RF: 0 sildenafil [Viagra] 100 mg tablet 100 mg PO QDAY PRN (Reason: ED) RF: 0 atorvastatin 20 MG tablet 20 mg PO HS RF: 0 gabapentin 400 MG capsule 900 mg PO Q6 RF: 0 potassium chloride 10 MEQ tablet 10 meq PO QAMCC RF: 0 olanzapine 2.5 MG tablet 15 mg PO HS RF: 0 methocarbamol 750 MG tablet 750 mg PO QIDP PRN (Reason: Spasms) RF: 0 pantoprazole 40 MG tablet 80 mg PO BIDAC RF: 0 lidocaine 1 PATCH patch 1 patch topical DAILY RF: 0 oxybutynin chloride 5 MG tablet extended release 24hr 5 mg PO TID RF: 0 diclofenac sodium 75 MG tablet 75 mg PO BID RF: 0 acyclovir 200 MG capsule 400 mg PO BID RF: 0 albuterol sulfate 1 PUFF inhaler 2 puff INH Q4HP PRN (Reason: Shortness Of Breath) RF: 0 fluoxetine 20 MG capsule 80 mg PO DAILY RF: 0 fluticasone propionate 1 SPRAY spray,suspension 1 spray NS BID RF: 0 cholecalciferol (vitamin D3) 5,000 UNIT capsule 5,000 unit PO DAILY RF: 0 loratadine 10 MG tablet 10 mg PO DAILY RF: 0 prazosin 2 MG capsule 2 mg PO QAM RF: 0 prazosin 2 MG capsule 8 mg PO HS RF: 0 hydroxyzine pamoate 25 MG capsule 25 mg PO HS RF: 0 budesonide-formoterol 10.2 GM HFA aerosol inhaler 2 puff INH BID RF: 0 ubrcfcgq-[place]qua-MJ-calcium-mins 1 TAB tablet 1 tab PO DAILY RF: 0 omega 0-woi-gyc-fish oil 1,000 MG capsule 1,000 mg PO BID RF: 0 tiotropium bromide 4 GM mist 2 puff INH QAM RF: 0 bupropion HCl 100 mg tablet 150 mg PO BID RF: 0 Follow Up Plan Follow up with: Cristofer Mtz ARNP [Primary Care Provider] - Patient Disposition: Home, Self-Care Prognosis: Fair Overall status at discharge: patient is back to baseline Discharge Orders: Discharge Order (Routine); Ordered 12/14/20 Ordered By: Jalen SHAH VTE Deep Vein Thrombosis/Pulmonary Embolism Present on Admission: No
[2020-12-14] MEDS ORDERED: LORATADINE 10 MG TABLET PO SCH (09:00)
[2020-12-14] MEDS ORDERED: buPROPion 75 MG TABLET PO SCH (09:00)
[2020-12-14] MEDS ORDERED: PRAZOSIN 2 MG CAPSULE PO SCH (09:00)
[2020-12-14] MEDS ORDERED: LIDOCAINE PATCH TOPICAL SCH (09:00)
[2020-12-14] MEDS ORDERED: ACYCLOVIR 400 MG TABLET PO SCH (09:00)
[2020-12-14] MEDS ORDERED: VITAMIN D3 5,000 UNIT CAPSULE PO SCH (09:00)
[2020-12-14] MEDS ORDERED: TIOTROPIUM BROMIDE 4 GM INH SCH (09:00)
[2020-12-14] MEDS ORDERED: FLUoxetine HCL 20 MG CAPSULE PO SCH (09:00)
[2020-12-14] MEDS ORDERED: MIST INH SCH (09:00)
[2020-12-14] MEDS: FLUTICASONE PROPIONATE SPRAY.NAS NS SCH (09:26)
== END 2020-12-14 09:45 | disposition home or self-care (01) ==
LOC: ED 10:17 → MEDSUR 10:17
PROVIDERS: ADMIT Internal Medicine; ATTEND Internal Medicine